=== PATIENT | male | born 1980 | race Caucasian/White ===

== ENCOUNTER 2018-07-06 18:55 | Emergency (ER) | payer OTHER ==
[2018-07-06 19:03] VITALS: BP 156/77; PULSE 88; TEMP 98.9; BMI 24.2
--- NOTE | 2018-07-06 21:33 | PDOC ---
History of Present Illness - General Chief Complaint: Toothache Stated Complaint: Toothache Time Seen by Provider: 07/06/18 19:41 History Source: Patient Exam Limitations: No Limitations - History of Present Illness Initial Comments: 07/06/18 19:54 HISTORY OF PRESENT ILLNESS: 38-year-old male past medical history of dental caries presents emergency Department with toothache to left lower molar. Patient reports having an abscess in December of last year for which she received antibiotics but never followed up with his dentist for definitive treatment. Patient reports he had a temporary filling placed which is subsequently fallen out in his head sharp searing pain in his left lower molar which she rates 10/ 10. No recent travel or sick contacts. PAST MEDICAL HISTORY: Denies past medical history SURGICAL HISTORY: Denies ALLERGIES: No known drug allergies REVIEW OF SYSTEMS General/Constitutional: Denies fever or chills. Denies weakness, weight change. HEENT: Denies change in vision. Denies ear pain or discharge. Denies sore throat. Cardiovascular: Denies chest pain or shortness of breath. Respiratory: Denies cough, wheezing, or hemoptysis. Gastrointestinal: Denies nausea, vomiting, diarrhea or constipation. Denies rectal bleeding. Genitourinary: Denies dysuria, frequency, or change in urination. Musculoskeletal: Denies joint or muscle swelling or pain. Denies neck or back pain. Skin and breasts: Denies rash or easy bruising. Neurologic: Denies headache, vertigo, loss of consciousness, or loss of sensation. Psychiatric: Denies depression or anxiety. Endocrine: Denies increased thirst. Denies abnormal weight change. Hematologic/Lymphatic: Denies anemia, easy bleeding, or history of blood clots. Allergic/Immunologic: Denies hives or skin allergy. Denies latex allergy. PHYSICAL EXAM General Appearance: Well-appearing, appropriately dressed. No apparent distress , no intoxication. HEENT: EOMI, PERRLA, normal voice, TMs normal, pharynx normal. No conjunctival pallor. No photophobia, scleral icterus. Obvious dental angelita present to tooth # 17. Poor dentition otherwise. No palpable abscess. Unable to express fluid from gingival surfaces surrounding tooth #17 Neck: Supple. Trachea midline. No tenderness, rigidity, carotid bruit, stridor , lymphadenopathy, or thyromegaly. Respiratory/Chest: Lungs CTAB. No shortness of breath, chest tenderness, respiratory distress, accessory muscle use. No crackles, rales, rhonchi, stridor , wheezing, dullness Cardiovascular: RRR. S1, S2. No JVD, murmur, bradycardia, tachycardia. Past History - Past Medical History Allergies/Adverse Reactions: Allergies Allergy/AdvReac Type Severity Reaction Status Date / Time No Known Allergies Allergy Verified 11/30/14 13:50 Home Medications: Ambulatory Orders NK [No Known Home Medication] 07/06/18 Penicillin V Potassium [Pen Vee K -] 250 mg PO QID #28 tablet 07/06/18 COPD: No Hypercholesterolemia: Yes Kidney Stones: Yes - Immunization History Immunization Up to Date: Yes - Suicide/Smoking/Psychosocial Hx Smoking Status: Yes Smoking History: Current every day smoker Have you smoked in the past 12 months: Yes Number of Cigarettes Smoked Daily: 2 Information on smoking cessation initiated: No 'Breaking Loose' booklet given: 01/28/14 Hx Alcohol Use: No Drug/Substance Use Hx: Yes (MARIJUANA) Substance Use Type: None Hx Substance Use Treatment: No *Physical Exam - Vital Signs Last Vital Signs Temp Pulse Resp BP Pulse Ox 98.9 F 88 16 156/77 97 07/06/18 19:00 07/06/18 19:00 07/06/18 19:00 07/06/18 19:00 07/06/18 19:00 Moderate Sedation - Procedure Monitoring Vital Signs: Procedure Monitoring Vital Signs Temperature 98.9 F 07/06/18 19:00 Pulse Rate 88 07/06/18 19:00 Respiratory Rate 16 07/06/18 19:00 Blood Pressure 156/77 07/06/18 19:00 O2 Sat by Pulse Oximetry (%) 97 07/06/18 19:00 Medical Decision Making - Medical Decision Making 07/06/18 19:55 A/P: 38-year-old male for evaluation of toothache Large dental carry presents to the #17. Mother dental caries present to multiple other teeth. No palpable abscesses noted Unable to express any fluid from gingival surfaces surrounding affected tooth I will discharge the patient home with prescription for penicillin. Patient reports all he needs is Motrin for pain control and he can handle that without a prescription. Conversation had with patient to discuss the importance of oral care. Patient is verbalizes understanding and will make an appointment with a dentist within the next 7 days. *DC/Admit/Observation/Transfer Diagnosis at time of Disposition: Dental caries noted on examination - Discharge Dispostion Disposition: HOME Condition at time of disposition: Stable Decision to Admit order: No - Prescriptions Prescriptions: Penicillin V Potassium [Pen Vee K -] 250 mg PO QID #28 tablet - Referrals - Patient Instructions Printed Discharge Instructions: DI for Tooth Decay, DI for Dental Pain Additional Instructions: Rest, drink lots of fluids: Teas, water, soups Saltwater gargles/ keep mouth clean and rinse after each meal May use wet teabag for pain relief to area Avoid hard chewing foods, stick to ice cream, Jell-O, yogurt etc. Tylenol or Motrin for fever and pain Complete all medication as prescribed Call [facility] at [phone] Followup with private physician in one to 2 days as needed Return to emergency department for worsened symptoms, fevers, swelling to face or worsened pain - Post Discharge Activity
== END 2018-07-06 20:03 | disposition home or self-care (01) ==
LOC: JERFT 18:55
DX: K02.9 Dental caries, unspecified (principal); E78.00 Pure hypercholesterolemia, unspecified; F17.210 Nicotine dependence, cigarettes, uncomplicated
CPT/HCPCS: 99281-25

== ENCOUNTER 2021-08-19 20:04 | Emergency (ER) | payer BC, OTHER ==
[2021-08-19 20:25] VITALS: BP 129/85; PULSE 92; TEMP 97.8; BMI 29.8
[2021-08-19 22:02] LABS: BASO % 0.7 % (0-2.0); EOS % 2.2 % (0-4.5); HEMATOCRIT 43.2 % (35.4-49); HEMOGLOBIN 14.8 GM/dL (11.7-16.9); LYMPH % 39.6 % (8-40); MCH 29.3 pg (25.7-33.7); MCHC 34.2 g/dl (32.0-35.9); MEAN CELL VOLUME 85.6 fl (80-96); MEAN PLT VOLUME 7.2 fl (7.5-11.1); NEUT % 49.5 % (42.8-82.8); PLATELET COUNT 298 10^3/uL (134-434); RBC 5.04 M/mm3 (4.00-5.60); WHITE BLOOD COUNT 9.9 K/mm3 (4.0-10.0)
[2021-08-19 22:13] LABS: ALBUMIN 3.6 g/dl (3.4-5.0); BLOOD UREA NITROGEN 15.2 mg/dL (7-18); MAGNESIUM 2.3 mg/dL (1.8-2.4)
[2021-08-19 22:18] LABS: BILIRUBIN,TOTAL 0.4 mg/dL (0.2-1)
[2021-08-19] MEDS ORDERED: methylPREDNISolone NA SUCC 125 MG/2 ML VIAL IVPUSH ONE (22:22)
[2021-08-19] MEDS ORDERED: ALBUTEROL SO4 2.5/IPRATROPIUM 0.5 INH SOL 3 ML VIAL.NEB. NEB ONE ×2 (22:58→22:59)
[2021-08-19] MEDS ORDERED: methylPREDNISolone NA SUCC 125 MG/2 ML VIAL ONE (22:58)
[2021-08-19] MEDS: ALBUTEROL SO4 2.5/IPRATROPIUM 0.5 INH SOL 3 ML VIAL.NEB. NEB SCH ×2 (23:18→23:54)
[2021-08-19] MEDS ORDERED: ACETAMINOPHEN 1000 MG/100 ML BAG IVPB ONE (23:32)
[2021-08-19] MEDS ORDERED: ACETAMINOPHEN INJECTION 100 ML IVPB ONE (23:52)
== END 2021-08-20 00:20 | disposition home or self-care (01) ==
LOC: JER 20:04
PROC: 3E0333Z Introduction of Anti-inflammatory into Peripheral Vein, Percutaneous Approach (ICD-10-PCS; principal; 2021-08-19)
PROC: 3E0F7GC Introduction of Other Therapeutic Substance into Respiratory Tract, Via Natural or Artificial Opening (ICD-10-PCS; 2021-08-19)
PROC: 3E033GC Introduction of Other Therapeutic Substance into Peripheral Vein, Percutaneous Approach (ICD-10-PCS; 2021-08-19)
DX: J45.901 Unspecified asthma with (acute) exacerbation (principal); R07.9 Chest pain, unspecified
CPT/HCPCS: 36415; 71275-TC; 80053; 83735; 84484; 85025; 85730; 93005; 93010; 99291; C9803; Q9967; U0003; U0005